=== PATIENT | male | born 1955 | race Caucasian/White ===

== ENCOUNTER → 2016-08-09 | Outpatient (CLI) | payer OTHER ==
[~2016-08-09] MED LIST: CALC-80 PO; FERR240T9 PO; HCA25SU PR; HYDR-34 PO; METR500T PO; MULT-974 PO; SULF1TAB38 PO; VITA100T6 PO
[2016-08-09 10:21] LABS: BASOPHILS # (AUTO) 0.1 10^3/uL (0.0-0.1); BASOPHILS % (AUTO) 1 % (0-10); EOSINOPHILS # (AUTO) 0.1 10^3/uL (0.0-0.3); EOSINOPHILS % (AUTO) 1 % (0-10); LYMPHOCYTES # (AUTO) 1.1 X 10^3 (1.0-4.0); LYMPHOCYTES % (AUTO) 21 % (12-44); MEAN CORPUSCULAR HEMOGLOBIN 29 PG (25-34); MEAN CORPUSCULAR HGB CONC 33 G/DL (32-36); MEAN CORPUSCULAR VOLUME 88 FL (80-99); MEAN PLATELET VOLUME 11.3 FL (7.4-10.4); MONOCYTES # (AUTO) 0.4 X 10^3 (0.0-1.0); MONOCYTES % (AUTO) 7 % (0-12); NEUTROPHILS # (AUTO) 3.7 X 10^3 (1.8-7.8); NEUTROPHILS % (AUTO) 70 % (42-75); PLATELET COUNT 195 10^3/uL (130-400); RED BLOOD COUNT 4.31 10^6/uL (4.35-5.85); RED CELL DISTRIBUTION WIDTH 11.8 % (10.0-14.5); RETICULOCYTE % 0.79 % (0.50-2.40); WHITE BLOOD COUNT 5.3 10^3/uL (4.3-11.0)
[2016-08-09 10:22] LABS: PATH WILL NEED TO REVIEW SMEAR PATH TO REVIEW
[2016-08-09 11:12] LABS: BASOPHILS % (MANUAL) 3 %; EOSINOPHILS % (MANUAL) 1 %; LYMPHOCYTES % (MANUAL) 19 %; NEUTROPHILS % (MANUAL) 73 %
== END ==
LOC: LAB 09:40
PROVIDERS: ATTEND Internal Medicine
DX: D72.89 Other specified disorders of white blood cells (principal)
CPT/HCPCS: 36415; 85007; 85027; 85045

== ENCOUNTER 2017-09-18 05:46 | Outpatient (CLI) | payer OTHER ==
[~2017-09-18] VITALS: Ht 170.2 cm; Wt 77.1 kg
[2017-09-18] MEDS ORDERED: MULT-178 PO (16:15)
== END 2017-09-18 16:17 ==
LOC: PREOP 05:46
PROVIDERS: ATTEND Surgery
DX: Z01.818 Encounter for other preprocedural examination (principal); Z86.010 Personal history of colon polyps

== ENCOUNTER 2017-09-25 10:52 | Day surgery (SDC) | payer OTHER ==
[~2017-09-25] VITALS: Ht 170.2 cm; Wt 77.1 kg
[~2017-09-25 10:52] MED LIST changes: +MULT-178 PO
--- OUTSIDE RECORDS SUMMARY | 2017-09-25 10:54 | XMS REPORT ---
Author Author LUIGI BONILLA [facility] e[employer] Address Unknown Phone Unavailable Care Team Providers Care Re Etcher Name Role Phone LUIGI BONILLA CP Unavailable Allergies No Known Allergies Problems Problem Type Condition Code Onset Dates Condition Status Problem Need for prophylactic vaccination and inoculation, Influenza V04.81 Active Assessment Encounter for immunization Z23 Active Problem ZOSTAVAX DX V05.8 Active Medications No Known Medications Procedures Procedure Coding System Code Date SINGLE IMMUNIZATION ADMIN CPT-4 25740 Feb 16, 2015 FLUARIX QUAD (3 & UP)-GSK-2014 CPT-4 87629 Feb 16, 2015 Results No Known Results Immunizations Vaccine Administration Date FLUARIX QUAD (3 & UP)-GSK-2014Feb 16, 2015 Summary Purpose eClinicalWorks Submission
[2017-09-25 11:10] VITALS: BP 123/79
[2017-09-25] MEDS ORDERED: NS IV 500 ML 500 ML IV PRN (11:10)
[2017-09-25] MEDS ORDERED: NS IV 500 ML 500 ML ONE (11:20)
[2017-09-25] MEDS ORDERED: GLUC100016 PO (11:40)
[2017-09-25] MEDS ORDERED: IRON1TAB95 PO (11:41)
--- NOTE | 2017-09-25 12:14 | History & Physicial ---
History of Present Illness History of Present Illness Reason for visit/HPI To undergo surveillance colonoscopy. Personal history of adenomatous polyps 2 years ago Date of Admission 09/25/17 Date Seen by Provider: Sep 25, 2017 Time Seen by Provider: 12:12 I consulted on this patient on 09/25/17 12:11 Attending Physician Opal Briggs MD Admitting Physician Kelby Jones MD Consult Allergies and Home Medications Allergies Coded Allergies: No Known Drug Allergies (Verified , 09/21/15) Home Medications Glucosamine Sulfate 2Kcl 1,000 Mg Tablet, 1,000 MG PO DAILY, (Reported) Iron,Carbonyl/Vit C/Vit B12/FA 1 Each Tablet, 1 EACH PO DAILY, (Reported) Multivitamin 1 Each Tablet, 1 EACH PO DAILY, (Reported) Patient Home Medication List Home Medication List Reviewed: Yes Past Wjufltn-Sosvki-Ktvkpa Hx Patient Social History Marrital Status: Employed/Student: retired Alcohol Use: Occasionally Uses Recreational Drug Use: No Smoking Status: Never a Smoker Recent Foreign Travel: No Contact w/other who traveled: No Recent Hopitalizations: No Recent Infectious Disease Expo: No Seasonal Allergies Seasonal Allergies: No Surgeries Yes Orthopedic Respiratory No Cardiovascular No Neurological No Genitourinary No Gastrointestinal Yes Hemorrhoids, Polyps Musculoskeletal Yes Arthritis HEENT History of HEENT Disorders: No Cancer No Psychosocial History of Psychiatric Problem: No Constitutional: no symptoms reported EENTM: no symptoms reported Respiratory: no symptoms reported Cardiovascular: no symptoms reported Gastrointestinal: no symptoms reported Genitourinary: no symptoms reported Musculoskeletal: joint pain Skin: no symptoms reported Psychiatric/Neurological: No Symptoms Reported Physical Exam Vital Signs Vital Signs - First Documented 09/25/17 11:10 Temp 98.7 Pulse 82 Resp 20 B/P (MAP) 123/79 (94) Pulse Ox 97 O2 Delivery Room Air Capillary Refill : General Appearance: No Apparent Distress Neck: Normal Inspection Respiratory: Lungs Clear Cardiovascular: Regular Rate, Rhythm Gastrointestinal: Non Tender, Soft Rectal: Deferred Extremity: Normal Inspection Neurologic/Psychiatric: Alert, Oriented x3 Skin: Warm/Dry Assessment/Plan Assessment and Plan Gentleman with a personal history of adenomatous polyps. For surveillance colonoscopy Admission Diagnosis Admission Status: Other (Outpt Proc) OPAL BRIGGS MD Sep 25, 2017 12:14 pm
--- NOTE | 2017-09-25 12:14 | Conscious Sedation/ASA ---
Conscious Sedation Pre-Proced Time Reviewed: 12:14 ASA Class: 2 Airway Mallampati Classification: ([place] appropriate class) I. II. III, IV Lungs Heart ASA score ASA 1: a normal healthy patient ASA 2: a patient with a mild systemic disease (mid diabetes, controlled hypertension, obesity ASA 3: a patient with a severe systemic disease that limits activity (angina , COPD, prior Myocardial infarction) ASA 4: a patient with an incapacitating disease that is a constant threat to life (CHF, renal failure) ASA 5: a moribund patient not expected to survive 24 hrs. (ruptured aneurysm) ASA 6: a declared brain patient whose organs are being harvested. For emergent operations, add the letter E after the classification Grade 1 Sedation Plan: Discussed options with patient/fam Note The patient is an appropriate candidate to undergo the planned procedure, sedation, and anesthesia. The patient immediately re-assessed prior to indication. OPAL BRIGGS MD Sep 25, 2017 12:14 pm
[2017-09-25] MEDS ORDERED: fentaNYL INJECTION 100 MCG/2 ML AMP ONE ×2 (12:38→12:39)
[2017-09-25] MEDS: fentaNYL INJECTION 100 MCG/2 ML AMP IVP PRN ×2 (12:38→12:41)
[2017-09-25] MEDS ORDERED: MIDAZOLAM 2 MG/2 ML (VERSED) VIAL ONE ×3 (12:39)
[2017-09-25] MEDS: MIDAZOLAM 2 MG/2 ML (VERSED) VIAL IVP PRN ×2 (12:40→12:45)
--- NOTE | 2017-09-25 13:00 | Endo Procedure Record ---
Endo Procedure Report Date of Procedure Last Colonoscopy: Yes Sep 25, 2017 Surgeon (s) OPAL BRIGGS MD Post Procedure/Op Diagnosis Very few sigmoid diverticulae Procedure Performed Colonoscopy to cecum Description of Procedure Anesthesia Type: Conscious Sedation Specimen(s) collected/removed None Description of the Procedure Indication for the procedure: In 2015, this gentleman was found to have an adenomatous polyp at the sigmoid colon. He returned for surveillance colonoscopy. Informed consent was obtained after reviewing the procedure in detail. Description of procedure: He was placed in left lateral decubitus position and his vital signs were monitored. Conscious sedation was achieved using Versed and fentanyl. Digital rectal examination was unremarkable. The colonoscope was then introduced in the rectum and advanced all the way up to the cecum. The quality of bowel preparation was excellent. Scope was then withdrawn slowly and the mucosa examined in a systematic fashion. Findings: Sigmoid diverticulosis. No recurrent polyps were found He tolerated the procedure well and was taken back to the nursing area in a stable condition. Impression: Surveillance colonoscopy. No recurrent polyps. Recommend repeating in 5 years. Copy Copies To 1: ANAI PINEDO MD, XAVIER M MD Sep 25, 2017 1:00 pm
--- NOTE | 2017-09-25 13:02 | Discharge Inst-Simple/Standard ---
Discharge Inst-Standard Discharge Medications New, Converted or Re-Newed RX: Other Patient Instructions/Follow Up Plan of Care/Instructions/FU: . Colonoscopy in 5 years Activity as Tolerated: Yes Discharge Diet: No Restrictions OPAL BRIGGS MD Sep 25, 2017 1:02 pm
[2017-09-25 13:20] VITALS: BP 126/72
[2017-09-25 13:50] VITALS: BP 133/72
[2017-09-25 14:00] VITALS: BP 133/72
== END 2017-09-25 14:00 | disposition home or self-care (01) ==
LOC: ENDO 10:52
PROVIDERS: ATTEND Surgery
DX: K57.30 Diverticulosis of large intestine without perforation or abscess without bleeding (principal); Z86.010 Personal history of colon polyps

== ENCOUNTER → 2020-06-18 | Outpatient (CLI) | payer MEDICARE, OTHER ==
[~2020-06-18] MED LIST changes: +GLUC100016 PO; +IRON1TAB95 PO
[2020-06-18 07:09] LABS: ABSOLUTE RETIC # 39 10e9/uL (24-90); BASOPHILS % (AUTO) 1 % (0-10); EOSINOPHILS # (AUTO) 0.1 10^3/uL (0.0-0.3); EOSINOPHILS % (AUTO) 3 % (0-10); HEMATOCRIT 35 % (40-54); LYMPHOCYTES % (AUTO) 30 % (12-44); MEAN CORPUSCULAR HEMOGLOBIN 32 pg (25-34); MEAN CORPUSCULAR HGB CONC 35 g/dL (32-36); MEAN CORPUSCULAR VOLUME 92 fL (80-99); MEAN PLATELET VOLUME 10.7 fL (9.0-12.2); MONOCYTES # (AUTO) 0.4 10^3/uL (0.0-1.0); MONOCYTES % (AUTO) 13 % (0-12); NEUTROPHILS # (AUTO) 1.7 10^3/uL (1.8-7.8); NEUTROPHILS % (AUTO) 53 % (42-75); PLATELET COUNT 177 10^3/uL (130-400); RETICULOCYTE % 1.03 % (0.50-2.40); WHITE BLOOD COUNT 3.1 10^3/uL (4.3-11.0)
[2020-06-18 07:35] LABS: BAND NEUTROPHILS 0 %; BASOPHILS % (MANUAL) 1 %; EOSINOPHILS % (MANUAL) 1 %; LYMPHOCYTES % (MANUAL) 31 %; MONOCYTES % (MANUAL) 11 %; NEUTROPHILS % (MANUAL) 56 %; RBC MORPH NORMAL
== END ==
LOC: LAB 06:43
PROVIDERS: ATTEND Internal Medicine
DX: D72.819 Decreased white blood cell count, unspecified (principal)
CPT/HCPCS: 36415; 85007; 85027; 85045; 85055

== ENCOUNTER → 2020-07-24 | Outpatient (CLI) | payer MEDICARE, OTHER ==
[2020-07-24 07:11] LABS: BASOPHILS # (AUTO) 0.1 10^3/uL (0.0-0.1); BASOPHILS % (AUTO) 1 % (0-10); EOSINOPHILS # (AUTO) 0.1 10^3/uL (0.0-0.3); EOSINOPHILS % (AUTO) 3 % (0-10); HEMATOCRIT 38 % (40-54); HEMOGLOBIN 12.6 g/dL (13.3-17.7); LYMPHOCYTES # (AUTO) 1.1 10^3/uL (1.0-4.0); LYMPHOCYTES % (AUTO) 30 % (12-44); MEAN CORPUSCULAR HEMOGLOBIN 32 pg (25-34); MEAN CORPUSCULAR HGB CONC 34 g/dL (32-36); MEAN CORPUSCULAR VOLUME 94 fL (80-99); MEAN PLATELET VOLUME 10.7 fL (9.0-12.2); MONOCYTES # (AUTO) 0.3 10^3/uL (0.0-1.0); MONOCYTES % (AUTO) 8 % (0-12); NEUTROPHILS # (AUTO) 2.2 10^3/uL (1.8-7.8); NEUTROPHILS % (AUTO) 58 % (42-75); PLATELET COUNT 156 10^3/uL (130-400); WHITE BLOOD COUNT 3.9 10^3/uL (4.3-11.0)
[2020-07-24 09:39] LABS: BASOPHILS % (MANUAL) 0 %; EOSINOPHILS % (MANUAL) 2 %; LYMPHOCYTES % (MANUAL) 30 %; MONOCYTES % (MANUAL) 9 %; NEUTROPHILS % (MANUAL) 59 %
[2020-07-24 09:40] LABS: RBC MORPH NORMAL
== END ==
LOC: LAB 06:54
PROVIDERS: ATTEND Internal Medicine
DX: D64.9 Anemia, unspecified (principal); D70.9 Neutropenia, unspecified
CPT/HCPCS: 36415; 85007; 85027

== ENCOUNTER → 2021-12-14 | Outpatient (CLI) | payer MEDICARE, OTHER | LOC: CARD 08:31 | PROVIDERS: ATTEND Internal Medicine | DX: I35.1 Nonrheumatic aortic (valve) insufficiency (principal) | CPT/HCPCS: 93306 ==

== ENCOUNTER → 2022-02-07 | Outpatient (CLI) | payer MEDICARE ==
[~2022-02-07] MED LIST changes: +CATHETER FLUSH 10 ML SYR IVP PRN
[2022-02-07 09:01] VITALS: BP 139/81
--- NOTE | 2022-02-07 12:33 | Cardiology Stress Test Report ---
Stress Test Report Date of Procedure/Referring: Date of Procedure: Feb 07, 2022 PCP Anai Pinedo MD Admitting Physician Admitting Physician: Attending Physician: Dwain Godinez MD Indications: HTN Baseline Heart Rate: 65 Baseline Blood Pressure: Blood Pressure Systolic: 139 Blood Pressure Diastolic: 81 Vital Signs Date Time Temp Pulse Resp B/P (MAP) Pulse Ox O2 Delivery O2 Flow Rate FiO2 02/07/22 09:01 65 139/81 (100) Baseline Vital Signs Vital Signs Date Time Temp Pulse Resp B/P (MAP) Pulse Ox O2 Delivery O2 Flow Rate FiO2 02/07/22 09:01 65 139/81 (100) Baseline EKG: Baseline EKG: NSR Summary: After explaining the procedure and details to the patient, he signed the c onsent and was brought to the stress nuclear laboratory. Patient exercised on standard Sam protocol, EKG, heart rate and blood pressure were monitored continuously, resting and stress doses of radio tracer were injected, imaging was acquired and reviewed in the short axis, horizontal long axis and vertical long axis views Patient was able to exercise for a total of 3 minutes on Sam protocol, METs 4.4 Maximum heart rate 139 Maximum blood pressure 180/77 Stress EKG, Minimal nondiagnostic changes Recovery EKG, Return to baseline TID: 0.88 SSS: 0 SDS: 0 EF: 57 Conclusion: 1. Poor exercise tolerance for a total of 3 minutes on standard Sam protocol, 4.4 METS achieving 91% of maximal expected heart rate 2. Appropriate heart rate response to exercise with hypertensive response to exercise with peak blood pressure 180/77 return to baseline during recovery 3. No significant ischemia or infarction on SPECT images 4. Normal left ventricular size, ejection fraction 57% Copy Copies To 1: ANAI PINEDO MD, BASHAR J MD Feb 07, 2022 12:32
== END ==
LOC: CARD 07:45
PROVIDERS: ATTEND Internal Medicine Cardiovascular Disease
DX: I10 Essential (primary) hypertension (principal); I25.10 Atherosclerotic heart disease of native coronary artery without angina pectoris
CPT/HCPCS: 78452; 93017; A9502

== ENCOUNTER → 2022-04-22 | Outpatient (CLI) | payer MEDICARE, OTHER ==
[~2022-04-22] MED LIST changes: -CATHETER FLUSH 10 ML SYR IVP PRN
== END ==
LOC: CARD 09:00
PROVIDERS: ATTEND Internal Medicine Cardiovascular Disease
DX: I10 Essential (primary) hypertension (principal); I25.10 Atherosclerotic heart disease of native coronary artery without angina pectoris; I35.1 Nonrheumatic aortic (valve) insufficiency
CPT/HCPCS: 93306

== ENCOUNTER 2022-05-04 10:51 | Day surgery (SDC) | payer MEDICARE, OTHER ==
[2022-05-04] VITALS (12 sets, daily range): BP systolic 102–144; BP diastolic 63–88
[~2022-05-04] VITALS: Ht 167.6 cm; Wt 71.2 kg
[2022-05-04] MEDS ORDERED: HEParin (CATH LAB) 2,000 ML IV ONE (11:03)
[2022-05-04] MEDS ORDERED: LIDOCAINE 1% INJ 30 ML (XYLOCAINE) VIAL ONE (11:03)
[2022-05-04] MEDS ORDERED: NS IV 1000 ML 1,000 ML ONE (11:03)
[2022-05-04] MEDS ORDERED: NS IV 1000 ML 1,000 ML IV SCH ×2 (11:15→13:45)
[2022-05-04 11:32] LABS: HEMATOCRIT 40 % (40-54); HEMOGLOBIN 13.5 g/dL (13.3-17.7); MEAN CORPUSCULAR HEMOGLOBIN 31 pg (25-34); MEAN CORPUSCULAR HGB CONC 34 g/dL (32-36); MEAN CORPUSCULAR VOLUME 91 fL (80-99); MEAN PLATELET VOLUME 10.8 fL (9.0-12.2); PLATELET COUNT 177 10^3/uL (130-400); WHITE BLOOD COUNT 5.3 10^3/uL (4.3-11.0)
[2022-05-04 11:47] LABS: INR 0.9 (0.8-1.4)
[2022-05-04] MEDS ORDERED: CHOL200059 PO (11:56)
[2022-05-04] MEDS ORDERED: CHON400C PO (11:56)
[2022-05-04] MEDS ORDERED: KRIL1CAP31 PO (11:56)
[2022-05-04 11:57] LABS: ALANINE AMINOTRANSFERASE 17 U/L (0-55); ALBUMIN 4.7 GM/DL (3.2-4.5); ALKALINE PHOSPHATASE 47 U/L (40-136); BILIRUBIN,TOTAL 0.7 MG/DL (0.1-1.0); BUN/CREATININE RATIO 16; CALCIUM 9.4 MG/DL (8.5-10.1); CARBON DIOXIDE 23 MMOL/L (21-32); CHLORIDE 99 MMOL/L (98-107); CHOLESTEROL 192 MG/DL (< 200); CREATININE SERUM 0.97 MG/DL (0.60-1.30); GFR ESTIMATED 85; GLUCOSE 88 MG/DL (70-105); HDL CHOLESTEROL 79 MG/DL (40-60); POTASSIUM 3.8 MMOL/L (3.6-5.0); SODIUM 135 MMOL/L (135-145); TOTAL PROTEIN 7.5 GM/DL (6.4-8.2); TRIGLYCERIDES 56 MG/DL (<150); VLDL CHOLESTEROL 11 MG/DL (5-40)
--- NOTE | 2022-05-04 12:22 | Diagnostic Imaging Report ---
EXAMINATION: Chest 1 view HISTORY: Aortic stenosis. Hypertension. Coronary artery disease. COMPARISON: None available. FINDINGS: The lung volumes are normal. No focal consolidation is seen. No large pleural effusion or pneumothorax is seen. The cardiomediastinal silhouette is normal in size and contour. There is calcified aortic atherosclerotic plaque. No acute osseous abnormality is seen. IMPRESSION: 1. No acute pleuroparenchymal process. Dictated by: Dictated on workstation # [id number]
[2022-05-04] MEDS ORDERED: fentaNYL INJ 100 MCG/2 ML AMP ONE (12:30)
[2022-05-04] MEDS ORDERED: VERAPAMIL 5 MG/2 ML (CALAN) VIAL IV ONE (12:30)
[2022-05-04] MEDS ORDERED: MIDAZOLAM 5 MG/5 ML (VERSED) VIAL ONE (12:31)
[2022-05-04] MEDS ORDERED: HEParin 1000 UNIT/ML (10ML VIAL) FOR BOLUS ONE (12:31)
[2022-05-04] MEDS ORDERED: NITRO DRIP 25000 MCG/D5W 250 ML IV ONE (12:31)
--- NOTE | 2022-05-04 13:39 | Cardiac Procedure Note-CS/ASA ---
Pre-Procedure Note Pre-Op Procedure Note Date of Available H&P: Apr 26, 2022 Date H&P Reviewed: May 04, 2022 Time H&P Reviewed: 11:00 History & Physical: H&P Reviewed, Patient Examed, No changes noted Pre-Operative Diagnosis: Aortic stenosis Conscious Sedation Pre-Proced Time 11:00 ASA Score 3 For ASA 3 and 4: Consider anesthesia and medical clearance. Also, for patients with a history of failed moderate sedation consider anesthesia. Airway Lungs Heart ASA score ASA 1: a normal healthy patient ASA 2: a patient with a mild systemic disease (mid diabetes, controlled hypertension, obesity ASA 3: a patient with a severe systemic disease that limits activity (angina, COPD, prior Myocardial infarction) ASA 4: a patient with an incapacitating disease that is a constant threat to life (CHF, renal failure) ASA 5: a moribund patient not expected to survive 24 hrs. (ruptured aneurysm) ASA 6: a declared brain- patient whose organs are being harvested. For emergent operations, add the letter E after the classification Mallampati Classification Grade 3 Sedation Plan Analgesia, Amnesia, Plan communicated to team members, Discussed options with patient/fam, Discussed risks with patient/fam The patient is an appropriate candidate to undergo the planned procedure, sedation, and anesthesia. The patient immediately re-assessed prior to indication. CATHY LEE MD May 04, 2022 13:39
--- NOTE | 2022-05-04 13:40 | Discharge Inst-Post CATH ---
Discharge Inst-CATH/EP Problems Reviewed?: Yes Post Cardiac Cath/EP D/C Inst Follow Up/Plan Appointment with Dr. Godinez's office in 2 to 4 weeks <b>CARDIAC CATH/EP PROCEDURE DISCHARGE INSTRUCTIONS</b> ACTIVITY * Go Home directly and rest. * Limit activity of the leg (or wrist if it was used) for 7 days including aer obics, swimming, jogging, bicycling, etc. * Restrict stair-climbing for 7 days if possible, if not, climb up with your non-cath leg, then bring together on the same step. * Avoid lifting, pushing, pulling or excessive movement of the affected extremi ty for 7 days. * Customary sexual activity may be resumed after 2 days-use caution not to use a position that strains or causes pain to the affected extremity. * No driving for 24 hours. * NO SMOKING. * Avoid straining for bowel movements for 7 days. * Gentle walking on level ground is allowed. * Returning to work will depend on the type of procedure and the results. Your doctor will discuss this with you. CALL YOUR DOCTOR FOR ANY OF THE FOLLOWING: *If bleeding from the puncture site occurs- Apply gentle pressure to site with clean cloth and call your doctor or EMS. * If a knot or lump forms under the skin, increases in size, or causes pain. * If bruising appears to be worsening or moving further down your leg instead of disappearing. * Temperature above 101 F. CARE OF YOUR GROIN INCISION; * Bruising or purple discoloration of the skin near the puncture site is common. * You may shower only, no bathtub bathing for 5 days. Be careful to avoid slipping as your leg may feel stiff. * If a closure device was used on your femoral artery, please see the attached guide regarding care of the device and your leg. * Leave dressing on FOR 24 hours. CARE OF YOUR WRIST INCISION; * Bruising or purple discoloration of the skin near the puncture site is common. * You may shower. * DO NOT submerge wrist. * Leave dressing on FOR 24 hours. CATHY GODINEZ MD May 04, 2022 13:40
--- NOTE | 2022-05-04 13:43 | Cardiac Cath Report ---
Cardiac Cath Report Physician (s)/[employer] Salesperson (s) Physician CATHY LEE MD Pre-Procedure Diagnosis Pre-Procedure Diagnosis: Aortic stenosis Post-Procedure Note Procedure Start Date: May 04, 2022 Name of Procedure: Coronary angiogram Aortic root angiogram Aortic arch angiogram Findings/Procedure Note PROCEDURE NOTE: 66-year-old gentleman diagnosed with aortic valve stenosis, scheduled for cardiac catheterization in preparation for aortic valve replacement. After explaining the procedure to the patient, all pros and cons were explained, all questions were answered. The patient signed the consent and then he was placed in the cardiac catheterization laboratory. Groin was prepped in SL fashion local anesthesia was used. Sheath placed in the right radial artery, [place] catheter was advanced and engaged the right and left coronary system, did not cross the aortic valve, placed in the aortic root and aortic root angiogram then pulled back to the aortic arch and aortic arch angiogram was done in preparation for the aortic valve replacement surgery. At the end of the procedure the sheath was removed. Vascular band was used FINDINGS: Hemodynamics LV did not cross the aortic valve Aorta 85/57 mean of 62 ANATOMY: Left Main is free of obstructive disease Left Anterior Descending has mild disease in the LAD nonobstructive disease Left Circumflex has mild disease nonobstructive disease Right Coronary Artery is dominant artery with mild disease nonobstructive disease Aortic root angiogram showed some calcification in the aortic root calcification on the aortic valve, no dissection or aneurysm no significant aortic regurgitation Aortic arch angiogram showed calcification in the aortic arch, no dissection or aneurysm, normal origin of the brachiocephalic artery left carotid and left subclavian arteries. CONCLUSION: 1. Mild coronary artery disease nonobstructive disease 2. Calcification in the aortic root and aortic arch with no dissection or aneurysm 3. Severe aortic valve stenosis, did not cross the aortic valve DISCUSSION AND RECOMMENDATION: Patient is referred for evaluation for CABG Anesthesia Type: Conscious Sedation Estimated blood loss (mL): 10 ml Contrast Amount: 62 ml Total Radiation Dose: 172 mGy Post-Procedure Diagnosis Post-operative diagnosis: Aortic valve stenosis Coronary artery disease Hypertension Hyperlipidemia. CATHY LEE MD May 04, 2022 13:43
== END 2022-05-04 16:45 | disposition home or self-care (01) ==
LOC: CATH 10:51 → SDC 13:43 → CATH 16:45
PROVIDERS: ATTEND Internal Medicine Cardiovascular Disease
DX: I35.0 Nonrheumatic aortic (valve) stenosis (principal); I25.10 Atherosclerotic heart disease of native coronary artery without angina pectoris; I10 Essential (primary) hypertension; E78.5 Hyperlipidemia, unspecified; I65.23 Occlusion and stenosis of bilateral carotid arteries
CPT/HCPCS: 36221; 71045; 80053; 80061; 85027; 85610; 85730; 87081; 93454; 93567; C1894; 36415; 93005